=== PATIENT | male | born 1955 | race Caucasian/White ===

== ENCOUNTER → 2017-05-08 | Outpatient (CLI) | payer OTHER | LOC: M.CT 08:00 | DX: Z13.6 Encounter for screening for cardiovascular disorders (principal) ==

== ENCOUNTER → 2018-01-11 | Outpatient (CLI) | payer OTHER | LOC: M.RAD 10:51 | DX: J15.8 Pneumonia due to other specified bacteria (principal) ==

== ENCOUNTER → 2019-10-22 | Outpatient (CLI) | payer BC | LOC: M.ULTRA 10-17 13:50 | PROVIDERS: ATTEND Internal Medicine | DX: K57.30 Diverticulosis of large intestine without perforation or abscess without bleeding (principal); R10.84 Generalized abdominal pain ==

== ENCOUNTER → 2019-10-29 | Outpatient (CLI) | payer BC ==
[~2019-10-29] MED LIST: FISH OIL 1,0001 EAC9 PO; LIPITOR40 MG PO; LORCET 5-325 M1 EACH PO; MULTIVITAMINS1 EAC7 PO; OMEPRAZOLE 20 M20 M1 PO; PROBIOTIC1 EAC7 PO; ST. JOSEPH ASPI81 M1 PO; VITAMIN D325 MC5 PO; ZOLOFT25 MG PO; ZYRTEC10 M2 PO
== END ==
LOC: M.LAB 08:58
PROVIDERS: ATTEND Surgery
DX: Z01.812 Encounter for preprocedural laboratory examination (principal); Z11.59 Encounter for screening for other viral diseases; K81.9 Cholecystitis, unspecified

== ENCOUNTER → 2019-11-01 | Day surgery (SDC) | payer BC ==
--- NOTE | ~2019-11-01 | OP ---
[facility] [address] [place] [address] OPERATIVE REPORT Name: MAILESLEY Chiara Room: [facility]#: [id number] Admission: 11/01/19 Attend Phys: Juan Jose Arana Discharge: Date of : 55 Report #: [id number] THIS REPORT FOR: //name// cc: Juan Lopez MD, Dean L. MD ~ THIS REPORT FOR: //name// CC: Juan Arana DATE OF SERVICE: 11/01/2019 PREOPERATIVE DIAGNOSES: Cholelithiasis with history of choledocholithiasis. POSTOPERATIVE DIAGNOSES: Cholelithiasis with history of choledocholithiasis. OPERATION: Laparoscopic cholecystectomy with intraoperative cholangiogram. SURGEON: Juan Jose Arana MD ANESTHESIA: General. ESTIMATED BLOOD LOSS: Minimal. SPECIMEN: Gallbladder. DESCRIPTION OF PROCEDURE: After informed consent was obtained, the patient was brought to the operating room and placed supine. SCDs were placed and working, preoperative antibiotics were administered, general anesthesia was induced. The abdomen was prepped and draped in the usual sterile fashion. A 10 mm incision was made below the umbilicus. Fascia was incised and a trocar was placed. Pneumoperitoneum was established. Three right upper quadrant 5 mm ports were placed. Gallbladder was grasped at the fundus and retracted cephalad. Infundibulum was grasped and retracted laterally. I dissected out the cystic duct and cystic artery. The cystic duct was clipped. A ductotomy was made. Cholangiogram catheter was inserted. Cholangiogram was performed. This demonstrated filling of the cystic duct, common bile duct, common hepatic duct, bifurcation of the hepatics, smooth flow into the duodenum without any filling defects. This was normal. The cystic duct was then clipped and ligated leaving a clip and a PDS Endoloop on the remaining duct and a clip on the remaining artery. Gallbladder was then taken off the liver bed after the cystic duct was clipped and ligated with a single clip. Gallbladder was then placed into an Endopouch and removed. The fascia was then closed with a [id number] 0 Vicryl. Skin was closed with 4-0 Monocryl. Incisions were [place] [address] OPERATIVE REPORT Name: LESLEY ONEILL Room: [facility]#: [id number] Admission: 11/01/19 Attend Phys: Juan Jose Arana Discharge: Date of : 55 Report #: [id number] COMPLICATIONS: None. DISPOSITION: The patient was taken to recovery in satisfactory condition. By: [id number] Arana MD /nt
[2019-11-01 09:04] LABS: HEMATOCRIT 44.2 % (42.0-52.0); HEMOGLOBIN 15.1 gm/dL (14.0-18.0); MCH 31.8 pg (26.0-34.0); MCHC 34.2 g/dL (28.0-37.0); MCV 93.2 fL (80.0-100.0); MPV 7.3 fl. (7.2-11.1); RBC 4.74 mil/uL (4.50-6.00); RDW-CV 13.2 % (10.5-14.5); WBC 4.8 thou/uL (4.0-11.0)
[2019-11-01 09:24] LABS: CALCIUM 8.7 mg/dL (8.5-10.1); CREATININE 1.2 mg/dL (0.6-1.3); POTASSIUM 3.8 mmol/L (3.5-5.1)
[2019-11-01 09:29] LABS: TOTAL BILIRUBIN 2.1 mg/dL (<0.1-1.0); TOTAL PROTEIN 7.4 g/dL (6.4-8.2)
--- NOTE | 2019-11-01 11:44 | EKG ---
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
--- NOTE | 2019-11-05 12:06 | PATH ---
[address] [address] PATHOLOGY RPT PROCEDURE Name: ONOFRE BANDA [id number]: 11/01/19 Date of : 55 Discharge: Report #: [id number] Path Case #: [id number] [facility] Accession Number: [id number] . 01 Material submitted: . gallbladder - GALLBLADDER . 01 Clinical history: . Cholelithiasis. . 02 Diagnosis: Gallbladder: - Chronic cholecystitis and cholelithiasis with incidental benign lymph node. (CHARLES:cass; 11/04/2019) [facility] 11/04/2019 1758 Local . 02 Electronically signed: . Charlie Soria MD, Pathologist NPI- [id number] . 01 Gross description: . Received in formalin labeled "Onofre Banda gallbladder" is an intact cholecystectomy specimen measuring 9.0 x 3.3 x 2.3 cm. The serosa is pink-suresh and smooth and the specimen is opened to reveal dark green and velvety mucosa without polyps or masses. The average wall thickness is 0.1-0.6 cm. Multiple black friable calculi are present within the lumen ranging from 0.3-0.6 cm in greatest dimension and measuring 0.7 x 0.5 x 0.2 cm in aggregate. [employer] sections of the fundus and body and the cystic duct margin are submitted in A1. ([facility]; 11/03/2019) [facility] 11/03/2019 1307 Local . 02 Pathologist provided ICD-10: K80.10 . 02 CPT . 010771 Specimen Comment: A courtesy copy of this report has been sent to [phone] Specimen Comment: [phone] Specimen Comment: Report sent to / DR JAEGER Performed at: [address] [facility] [address] [id number] MD Truong Chapin MD Phone: [phone] Performed at: [address] [facility] [address] [id number] [place] [address] PATHOLOGY RPT PROCEDURE Name: ONOFRE BANDA Room: [facility]#: [id number] Admission: 11/01/19 Date of : 55 Discharge: Report #: [id number] Path Case #: [id number] MD Charlie Soria MD Phone: [phone]
== END | disposition home or self-care (01) ==
LOC: M.SUR 08:40
PROVIDERS: ATTEND Surgery
DX: K80.10 Calculus of gallbladder with chronic cholecystitis without obstruction (principal); Z79.899 Other long term (current) drug therapy; Z88.8 Allergy status to other drugs, medicaments and biological substances; Z98.890 Other specified postprocedural states